=== PATIENT | female | born 1970 | race Caucasian/White ===

== ENCOUNTER 2021-03-18 01:51 | Emergency (ER) | payer OTHER, MEDICAID ==
[~2021-03-18] VITALS: Ht 165.1 cm; Wt 72.6 kg
[2021-03-18 02:05] VITALS: BP_SYST 117
--- NOTE | 2021-03-18 02:19 | NUR ---
Patient to ER bed 3 to gown for evaluation. Side rails up. Report given to artie baez.
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
--- NOTE | 2021-03-18 02:30 | NUR ---
DR. VAZQUEZ AT BEDSIDE FOR EVALUATION.
--- NOTE | 2021-03-18 02:40 | NUR ---
PATIENT TAKEN TO CT SCAN VIA WHEELCHAIR BY RADIOLOGY STAFF.
[2021-03-18] MEDS ORDERED: IBUPROFEN 800 MG TABLET PO ONE (02:45)
[2021-03-18] MEDS ORDERED: CYCL-10 PO (03:55)
[2021-03-18] MEDS ORDERED: IBUP-1970 PO (03:55)
--- NOTE | 2021-03-18 04:00 | NUR ---
Patient given written and verbal discharge instructions and verbalizes understanding. DR. GEORGE VEGA MD discussed with patient the results and treatment provided. Patient in stable condition. ID arm band removed. Rx of IBUPROFEN, FLEXRIL given. Patient educated on pain management and to follow up with PMD. Pain Scale 0/10. Opportunity for questions provided and answered. Medication side effect fact sheet provided.
[2021-03-18 04:06] VITALS: BP_SYST 117
== END 2021-03-18 04:00 | disposition home or self-care (01) ==
LOC: SED 01:51
DX: M54.2 Cervicalgia (principal); Z79.899 Other long term (current) drug therapy; V43.52XA Car driver injured in collision with other type car in traffic accident, initial encounter; Y93.89 Activity, other specified; Y92.89 Other specified places as the place of occurrence of the external cause; Y99.8 Other external cause status
CPT/HCPCS: 72050-TC; 99283